=== PATIENT | female | born 1935 | race Caucasian/White ===

== ENCOUNTER 2020-01-22 05:44 | Emergency (ER) | payer MEDICARE, BC ==
[2020-01-22] MEDS ORDERED: Diphtheria,Pertussis(Acell),Tetanus Vaccine 0.5 ML Syringe IM ONE (06:58)
--- NOTE | 2020-01-22 07:01 | EDM.PDOC ---
ED HPI GENERAL MEDICAL PROBLEM - General Chief Complaint: Laceration Stated Complaint: [facility] Time Seen by Provider: 01/22/20 06:57 Source of Information: Reports: Patient History Limitations: Reports: No Limitations - History of Present Illness INITIAL COMMENTS - FREE TEXT/NARRATIVE: Mrs. Lindsey is a very pleasant 85-year-old woman, who is now brought to the ED by EMS after lacerating her right leg. She states that she was going to open her oven, when she stumbled, falling backwards, around 04:30 to 05:00 this morning. She believes she cut her right leg on the floor, although it might have been on the oven door. She is otherwise uninjured. Here in the ED, the patient's initial BP was elevated at 182/86. She is otherwise hemodynamic stable, afebrile, saturating 93% on room air. Other than this morning's right leg injury, the patient denies having a recent fever, chills, sore throat, ear pain, nasal or sinus congestion, cough, dyspnea, chest pain, palpitations, nausea, vomiting, constipation, diarrhea, abdominal pain, urinary symptoms, recent weight gain or weight loss, recent bloody bowel movements or black bowel movements, recent joint aches, headaches, or rashes. The patient does not recall when her last tetanus vaccination was. The patient's PCP is Jennie Alcantara NP. Her Orthopedic Surgeon is Dr. Camacho Jiménez. Her Senior Industrial Engineer is Dr. Yang Verdin. - Related Data Allergies Allergy/AdvReac Type Severity Reaction Status Date / Time acetaminophen [From Tylenol] Allergy Swelling Verified 01/22/20 05:55 codeine Allergy Swelling Verified 01/22/20 05:55 Home Meds: Home Meds Hydrocodone/Acetaminophen [[place] 5-325 Tablet] 1 each PO Q6HR PRN #10 tablet 1 06/19/14 [Rx] Past Medical History Cardiovascular History: Reports: High Cholesterol, Hypertension Neurological History: Reports: Neuropathy, Diabetic Endocrine/Metabolic History: Reports: Diabetes, Type II - Past Surgical History HEENT Surgical History: Reports: Oral Surgery (wisdom teeth extraction) GI Surgical History: Reports: Appendectomy, Cholecystectomy () Female Surgical History: Reports: Hysterectomy (partial) Neurological Surgical History: Reports: Lumbar Spine (fusion) Musculoskeletal Surgical History: Reports: Knee Replacement (bilateral), Shou lder Surgery (eft, open) Social & Family History - Tobacco Use Smoking Status *Q: Never Smoker - Caffeine Use Caffeine Use: Reports: Coffee - Alcohol Use Alcohol Use History: No - Recreational Drug Use Recreational Drug Use: No - Living Situation & Occupation Living situation: Reports: , Assisted Living ([facility]) Occupation: Retired ED ROS GENERAL - Review of Systems Review Of Systems: Comprehensive ROS is negative, except as noted in HPI. ED EXAM, SKIN/RASH Exam: See Below Exam Limited By: No Limitations General Appearance: Alert, WD/WN, No Apparent Distress Extremities: Other (Large "C"-shaped flap laceration to the proximal right leg measuring approximately 21 cm. There is a considerable amount of blood clot in the wound, which I removed. A mild to moderate amount of bleeding ensued. No foreign bodies seen. Neurovascular status of the right lower extremity appears to be intact.) ED SKIN PROCEDURES - Laceration/Wound Repair Right Leg Appearance: Subcutaneous, Irregular, Clean Distal NVT: Neuro & Vascular Intact, No Tendon Injury Skin Prep: Providone-Iodine (Betadine) Exploration/Debridement/Repair: Wound Explored, In a Bloodless Field, Explored to Base, No Foreign Material Found Closed with: Aldo Lac/Wound length In cm: 21 # of Sutures: 30 Drain Placement: No Sterile Dressing Applied: Nurse Tetanus Status Addressed: Yes Complications: No Course - Vital Signs Last Recorded V/S: Last Vital Signs Temp 36.1 C 01/22/20 05:48 Pulse 80 01/22/20 05:48 Resp 20 01/22/20 05:48 BP 182/86 H 01/22/20 05:48 Pulse Ox 93 L 01/22/20 05:48 - Orders/Labs/Meds Orders: Active Orders 24 hr Category Date Time Status Vaccines to be Administered [RC] PER UNIT ROUTINE Care 01/22/20 06:58 Active Meds: Medications Discontinued Medications Generic Name Dose Route Start Last Admin Trade Name Freq PRN Reason Stop Dose Admin Diphtheria/Tetanus/Acell Pertussis 0.5 ml 01/22/20 06:58 Adacel IM 01/22/20 06:59 .ONCE ONE - Re-Assessments/Exams Free Text/Narrative Re-Assessment/Exam: 01/22/20 06:58 As above, the patient suffered a large flap laceration to her proximal right leg. I stapled the wound with 30 aldo. The patient tolerated the procedure well. I will have her nurse dress the wound prior to discharge. Since the patient does not recall when her last tetanus vaccination was, she will be given a tetanus vaccination prior to discharge. Departure - Departure Time of Disposition: 07:10 Disposition: Home, Self-Care 01 Condition: Good Clinical Impression: Laceration of right lower leg - Discharge Information *PRESCRIPTION DRUG MONITORING PROGRAM REVIEWED*: Not Applicable *COPY OF PRESCRIPTION DRUG MONITORING REPORT IN PATIENT LANI: Not Applicable Referrals: Jennie Alcantara NP [Ordering Only Provider] - Camacho Jiménez MD [Physician] - Yang Verdin MD [Ordering Only Provider] - Forms: ED Department Discharge Additional Instructions: You were seen in the emergency room after falling and cutting your right leg. Your wound was closed with 30 aldo in the ER. Keep the wound clean with ordinary soap and water when you bathe, daily. We recommend that you apply a clean absorbent bandage over the wound, with elastic wrap to keep the bandage in place. You may need to change the bandage once or twice a day, initially. You may take [id number] Tylenol or ibuprofen as needed for discomfort. The aldo should be ready for removal by , 02/01/2020. They can be removed at the walk-in clinic, by a nurse at either Dr. Jiménez's or Jennie Alcantara's office, or in the ER. If any other problems, please do not hesitate to return to the ER. *You were given a tetanus vaccination during your ER visit.* Sepsis Event Note (ED) - Evaluation Sepsis Screening Result: No Definite Risk - Focused Exam Vital Signs: Vital Signs Temp Pulse Resp BP Pulse Ox 01/22/20 05:48 36.1 C 80 20 182/86 H 93 L - My Orders Last 24 Hours: My Active Orders 01/22/20 06:58 Vaccines to be Administered [RC] PER UNIT ROUTINE - Assessment/Plan Last 24 Hours: My Active Orders 01/22/20 06:58 Vaccines to be Administered [RC] PER UNIT ROUTINE
[2020-01-22 08:56] VITALS: BP 176/87; PULSE 79
== END 2020-01-22 08:50 | disposition home or self-care (01) ==
LOC: JD.ED 05:44
DX: S81.811A Laceration without foreign body, right lower leg, initial encounter (principal); I10 Essential (primary) hypertension; E11.40 Type 2 diabetes mellitus with diabetic neuropathy, unspecified; Z88.6 Allergy status to analgesic agent; Z88.5 Allergy status to narcotic agent; Z23 Encounter for immunization; W01.0XXA Fall on same level from slipping, tripping and stumbling without subsequent striking against object, initial encounter
CPT/HCPCS: 12006; 90471; 90715; 99282; 99283-25

== ENCOUNTER 2020-12-22 14:41 | Emergency (ER) | payer MEDICARE, BC ==
[2020-12-22] MEDS ORDERED: Sodium Chloride 0.9% 1,000 ML IV STA (15:24)
[2020-12-22] MEDS ORDERED: Ondansetron 4 MG/2 ML SDV IVPUSH ONE ×2 (15:24→19:11)
[2020-12-22] MEDS ORDERED: Sodium Chloride 0.9% 10 ML Syringe FLUSH PRN (15:24)
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
--- NOTE | 2020-12-22 16:30 | CR ---
Chest: AP and lateral views of the chest were obtained. Comparison: No prior chest study is available. Mild increased density is seen within the left base and within the left lateral costophrenic angle. This may represent prominent atelectasis but difficult to exclude an area of pneumonia. Right hemidiaphragm is elevated which is likely chronic. Lungs otherwise are clear. Heart size and mediastinum are normal. Degenerative change is seen within both shoulders. Scoliosis is noted within the spine with scattered disc space narrowing and endplate osteophytes. Impression: 1. Increased density within the left lung base which may represent prominent atelectasis but difficult to exclude an area of pneumonia. Please correlate with the patient's symptoms. 2. Other findings believed to be chronic as noted above. Diagnostic code #3
[2020-12-22 16:35] VITALS: PULSE 75
[2020-12-22] MEDS ORDERED: Potassium Chloride 20 MEQ Tab.ER PO ONE (17:17)
[2020-12-22] MEDS ORDERED: Doxycycline 100 MG Cap PO ONE (19:08)
[2020-12-22 20:14] VITALS: BP 153/45
== END 2020-12-22 20:00 | disposition home or self-care (01) ==
LOC: SUPCPDRO 14:41 → JD.ED 14:41
DX: A08.4 Viral intestinal infection, unspecified (principal); E87.6 Hypokalemia; D72.829 Elevated white blood cell count, unspecified; E78.00 Pure hypercholesterolemia, unspecified; I10 Essential (primary) hypertension; E11.40 Type 2 diabetes mellitus with diabetic neuropathy, unspecified; Z88.6 Allergy status to analgesic agent; Z88.5 Allergy status to narcotic agent; Z88.2 Allergy status to sulfonamides; Z88.8 Allergy status to other drugs, medicaments and biological substances; Z79.82 Long term (current) use of aspirin; Z79.4 Long term (current) use of insulin; Z79.899 Other long term (current) drug therapy; Z20.822 Contact with and (suspected) exposure to COVID-19
CPT/HCPCS: 36415; 71046; 80053; 81001; 83735; 83880; 84484; 85025; 86140; 93005; 96374; 96376; 99285; A9270; J2405; J7030; U0002; 93010; 99283

== ENCOUNTER 2022-07-30 16:04 | Emergency (ER) | payer MEDICARE, BC ==
[2022-07-30] MEDS ORDERED: Sodium Chloride 0.9% 1,000 ML IV STA (16:45)
[2022-07-30] MEDS ORDERED: Ondansetron 4 MG/2 ML SDV IVPUSH ONE ×2 (16:45→20:59)
[2022-07-30] MEDS: Sodium Chloride 0.9% 10 ML Syringe FLUSH PRN ×2 (17:28→19:47)
[2022-07-30 18:57] LABS: CORONAVIRUS COVID-19 NAA NEGATIVE (NEGATIVE)
[2022-07-30] MEDS ORDERED: Iopamidol 755 Mg/ML 100 ML Bottle IVPUSH ONE (19:16)
[2022-07-30] MEDS ORDERED: Sodium Chloride 0.9% 10 ML SDV FLUSH ONE (19:16)
[2022-07-30] MEDS ORDERED: Cephalexin 500 MG Cap PO ONE (20:49)
[2022-07-30 22:19] VITALS: BP 127/67; PULSE 84
== END 2022-07-30 22:08 | disposition home or self-care (01) ==
LOC: JD.ED 16:04
DX: A08.4 Viral intestinal infection, unspecified (principal); L03.115 Cellulitis of right lower limb; E78.00 Pure hypercholesterolemia, unspecified; I10 Essential (primary) hypertension; E11.40 Type 2 diabetes mellitus with diabetic neuropathy, unspecified; R60.0 Localized edema; Z88.8 Allergy status to other drugs, medicaments and biological substances; Z88.5 Allergy status to narcotic agent; Z88.2 Allergy status to sulfonamides; Z90.49 Acquired absence of other specified parts of digestive tract; Z20.822 Contact with and (suspected) exposure to COVID-19
CPT/HCPCS: 0240U; 36415; 71045; 74177; 80053; 81001; 83690; 85025; 86140; 96361; 96374; 96376; 99284; A9270; J2405; J3490; J7030; Q9967